=== PATIENT | male | born 1980 | race Caucasian/White ===

== ENCOUNTER 2019-08-25 20:25 | Emergency (ER) ==
[2019-08-25 20:33] VITALS: BP 133/86
== END 2019-08-25 20:45 | disposition left against medical advice (07) ==
LOC: ER 20:25
DX: Z53.21 Procedure and treatment not carried out due to patient leaving prior to being seen by health care provider (principal)

== ENCOUNTER 2019-10-06 07:23 | Day surgery (SDC) | payer OTHER ==
[~2019-10-06 07:23] MED LIST: LACTATED RINGERS 1000 ML IV PRN; LIDOCAINE 0.5% INJ-PF (5 MG/ML) 50 ML SDV SUBCUT PRN; PROPOFOL INJ 200 MG/20 ML VIAL IV ONE
[2019-10-06] MEDS ORDERED: FAMOTIDINE INJ/PF 20 MG/2 ML SDV IV ONE (08:14)
[2019-10-06] MEDS ORDERED: MIDAZOLAM 2 MG/2 ML INJ ONE (08:14)
[2019-10-06] MEDS ORDERED: METOCLOPRAMIDE HCL INJ/PF 10 MG/2 ML SDV ONE (08:14)
[2019-10-06 10:49] VITALS: BP 123/85
--- NOTE | 2019-10-06 12:01 | Operative Report ---
Operative Report DATE OF SURGERY: 10/06/19 Operative Report: The risks benefits and alternatives of the procedure explained to the patient in detail and informed consent is obtained.A GIF Olympus video scope was inserted into the patient's mouth and hypopharynx, the esophagus is identified intubated and insufflated, the scope was then advanced through the esophagus stomach and duodenum, retroflexion maneuver is done ,the esophagus stomach and first and second portions of the duodenum examined PREOPERATIVE DIAGNOSIS: History of eosinophilic esophagitis with dysphagia POSTOPERATIVE DIAGNOSIS: Esophageal rings and furrows that are noted status post biopsy for confirmation. No food impaction noted. Gastritis status post biopsy rule out Helicobacter pylori OPERATION: EGD with biopsy SURGEON: VANESSA NATHAN ANESTHESIA: LMAC TISSUE REMOVED OR ALTERED: As noted above. COMPLICATIONS: None. ESTIMATED BLOOD LOSS: None. INTRAOPERATIVE FINDINGS: As noted above. PROCEDURE: Patient tolerated the procedure well. No immediate postprocedure complications are noted. Patient is discharged in good condition. Discharge date 10/06/2019. Discharge diet: Regular. Discharge activity: Regular. 2 to 3-week follow-up to discuss findings. Patient is instructed call the office or proceed to the emergency room should there be any further problems or questions. Will prescribe steroids and will send to outpatient pharmacy
== END 2019-10-06 10:15 | disposition home or self-care (01) ==
LOC: END 07:23 → OROUT 10:15
PROVIDERS: ATTEND Internal Medicine Gastroenterology
DX: K20.0 Eosinophilic esophagitis (principal); K29.50 Unspecified chronic gastritis without bleeding; R13.10 Dysphagia, unspecified; I10 Essential (primary) hypertension; K21.9 Gastro-esophageal reflux disease without esophagitis; Z87.891 Personal history of nicotine dependence
CPT/HCPCS: 43239; 88305 ×2; J2250; J2765; J2704; S0028; 731